=== PATIENT | female | born 1955 | race Two or more races ===

== ENCOUNTER 2017-01-16 16:47 | Emergency (ER) | payer OTHER ==
[2017-01-16] MEDS ORDERED: ONDANSETRON 4 MG ODT TAB ONE (18:11)
[2017-01-16] MEDS ORDERED: IBUPROFEN 200 MG TABLET ONE (18:11)
== END 2017-01-16 18:27 | disposition home or self-care (01) ==
LOC: ED 16:47
DX: M25.511 Pain in right shoulder (principal); R11.0 Nausea; I10 Essential (primary) hypertension; V43.53XA Car driver injured in collision with pick-up truck in traffic accident, initial encounter; Y92.410 Unspecified street and highway as the place of occurrence of the external cause
CPT/HCPCS: 99283 ×2; A9270 ×2